=== PATIENT | female | born 1950 | race Caucasian/White ===

== ENCOUNTER 2018-01-20 06:54 | Day surgery (SDC) ==
[2018-01-20] MEDS ORDERED: DIPRIVAN 20 ML VIAL IVP ONE (08:34)
[2018-01-20] MEDS ORDERED: VERSED ONE (08:34)
[2018-01-20 10:01] VITALS: BP 134/75; TEMP 97
--- NOTE | 2018-01-21 07:07 | OP ---
INDICATIONS FOR PROCEDURE: 67-year-old female presents for colonoscopy. She has a history of adenomatous polyps and family history of colon polyps. Her last colonoscopy was 3 years ago. MEDICATIONS: SEE ANESTHESIA NOTES. PROCEDURE: COLONOSCOPY, SNARE POLYPECTOMY. REPORT: The risks, benefits, alternatives and limitations were discussed in detail with the patient. Informed consent was obtained. After adequate sedation was achieved, a digital rectal exam revealed good tone, no masses. The colonoscope was introduced into the rectum and advanced under direct visual guidance to the cecum. The cecum was identified by the appendiceal orifice and IC valve. In the cecum there is a small 5 mm polyp. I removed this by snare technique. I then slowly withdrew the scope in a circumferential manner examining the mucosa quite carefully. I looked on the proximal and distal side of folds and flexures as best as possible. On the distal side of the hepatic flexure there was a 7 mm sessile polyp. I removed this by snare technique. In the sigmoid area there was a 5 mm sessile polyp that I destroyed using a snare. There were multiple small mouth diverticula scattered throughout the sigmoid area. On retroflex view of the anal canal there was 1+ internal hemorrhoids. The prep was good. The withdrawal time is 12 minutes and 32 seconds. The patient tolerated the procedure well with stable vital signs and pulse oximetry throughout. IMPRESSION: 1. THREE (3) POLYPS REMOVED 2. DIVERTICULOSIS 3. 1+ INTERNAL HEMORRHOIDS RECOMMENDATIONS: 1. High fiber diet. 2. Office visit as needed. 3. Await pathology results. If everything is benign and there are adenomatous changes, I recommend repeat colonoscopy examination again in 3 years , otherwise surveillance again in 5 years. CC: DR. MERVIN LUCERO [facility]ALTH[facility]isa
== END 2018-01-20 09:54 | disposition home or self-care (01) ==
LOC: SURG 06:54
PROVIDERS: ATTEND Internal Medicine Gastroenterology
DX: K63.5 Polyp of colon (principal); Z86.010 Personal history of colon polyps; D12.3 Benign neoplasm of transverse colon; K57.30 Diverticulosis of large intestine without perforation or abscess without bleeding; K64.8 Other hemorrhoids; Z83.71 Family history of colonic polyps